=== PATIENT | female | born 2000 | race American Indian/Alaskan Native ===

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

== ENCOUNTER 2018-01-26 08:16 | Emergency (ER) | payer SELFPAY ==
[2018-01-26 08:23] VITALS: BP 134/86
[2018-01-26 08:43] LABS: Bacteria,Urine 2+ /HPF (Negative); Bilirubin,Urine NEG (Negative); Blood,Urine SM (Negative); Color,Urine Yellow (Yellow); Hyaline Casts,Urine 1 /LPF; Mucus,Urine 3+ /HPF; Protein,Urine <15 mg/dL mg/dL (Negative); Urobilinogen,Urine < 2.0 mg/dL (<2.0)
[2018-01-26 08:44] LABS: HCG Qualitative,Urine Negative (Negative)
[2018-01-26] MEDS ORDERED: MACROBID PO ONE (09:25)
--- NOTE | 2018-01-26 09:26 | Emergency Department Report ---
Blank Doc - Documentation Documentation: 17 year female presents to Hospital complaining of white vaginal discharge for 3 -4 days. Patient has had unprotected sex with a regular partner. She complains of intermittent lower abdominal pain and increased urinary frequency. No complains of dysuria or fever. On exam patient has very mild superpubic tenderness UA suggestive of infection with negative . Macrobid ordered Mid-level to perform pelvic exam and further evaluation
--- NOTE | 2018-01-26 09:55 | Emergency Department Report ---
ED Female HPI - General Chief complaint: Urogenital-Female Stated complaint: VAGINAL PAIN Time Seen by Provider: 01/26/18 09:21 Source: patient Mode of arrival: Ambulatory Limitations: No Limitations - History of Present Illness Initial comments: This is a 17-year-old -[place] female that presents with complaint of vaginal pain and discharge. Patient states symptoms started 3-4 days ago. Vaginal discharge is white and different from usual discharge. Last menstrual period 01/09/2018. Patient has had unprotected sex with a regular partner. She complains of intermittent lower abdominal pain and increased urinary frequency. She denies fever and dysuria. MD Complaint: vaginal discharge, pelvic pain Onset/Timin -: days(s) Location: suprapubic Radiation: non-radiating Severity: mild Severity scale (0 -10): 4 Quality: cramping Consistency: intermittent Improves with: none Worsens with: none Are you Now?: No Last Menstrual Period: 01/09/18 EDC: 10/16/18 Associated Symptoms: vaginal discharge, abdominal pain. denies: vaginal bleeding, nausea/vomiting, fever/chills, headaches, loss of appetite, dysuria, hematuria, rash, seizure, shortness of breath, syncope, weakness - Related Data Sexually active: Yes : 1 Para: 0 A: 1 Previous Rx's Medication Instructions Recorded Last Taken Type Fluconazole [Diflucan TAB] 200 mg PO QDAY #1 tablet 01/11/17 Unknown Rx Sulfamethoxazole/Trimethoprim 1 each PO BID #10 tablet 01/11/17 Unknown Rx [Bactrim DS TAB] metroNIDAZOLE 0.75% [Vandazole 1 applicator VG QHS #1 tube 01/11/17 Unknown Rx 0.75% VAGINAL] Fluconazole [Diflucan] 150 mg PO DAILY #1 tablet 01/26/18 Unknown Rx Sulfamethoxazole/Trimethoprim 1 each PO BID #6 tablet 01/26/18 Unknown Rx [Bactrim DS TAB] metroNIDAZOLE [Metronidazole] 500 mg PO BID #14 tablet 01/26/18 Unknown Rx Allergies Allergy/AdvReac Type Severity Reaction Status Date / Time No Known Allergies Allergy Verified 01/26/18 08:21 ED Review of Systems ROS: Stated complaint: VAGINAL PAIN Other details as noted in HPI Constitutional: denies: chills, fever Respiratory: denies: cough, shortness of breath, wheezing Cardiovascular: denies: chest pain, palpitations Gastrointestinal: abdominal pain (lower abdominal pain). denies: nausea, diarrhea Genitourinary: frequency. denies: urgency, dysuria, discharge Musculoskeletal: denies: back pain, joint swelling, arthralgia Neurological: denies: headache, weakness, paresthesias Psychiatric: denies: anxiety, depression ED Past Medical Hx - Past Medical History Previous Medical History?: No - Surgical History Past Surgical History?: No - Social History Smoking Status: Never Smoker Substance Use Type: None - Medications Home Medications: Home Medications Medication Instructions Recorded Confirmed Last Taken Type Fluconazole [Diflucan TAB] 200 mg PO QDAY #1 tablet 01/11/17 Unknown Rx Sulfamethoxazole/Trimethoprim 1 each PO BID #10 tablet 01/11/17 Unknown Rx [Bactrim DS TAB] metroNIDAZOLE 0.75% [Vandazole 1 applicator VG QHS #1 tube 01/11/17 Unknown Rx 0.75% VAGINAL] Fluconazole [Diflucan] 150 mg PO DAILY #1 tablet 01/26/18 Unknown Rx Sulfamethoxazole/Trimethoprim 1 each PO BID #6 tablet 01/26/18 Unknown Rx [Bactrim DS TAB] metroNIDAZOLE [Metronidazole] 500 mg PO BID #14 tablet 01/26/18 Unknown Rx ED Physical Exam - General Limitations: No Limitations General appearance: alert, in no apparent distress - Respiratory Respiratory exam: Present: normal lung sounds bilaterally. Absent: respiratory distress - Cardiovascular Cardiovascular Exam: Present: regular rate, normal rhythm. Absent: systolic murmur, diastolic murmur, rubs, gallop - GI/Abdominal GI/Abdominal exam: Present: soft, tenderness (suprapubic), normal bowel sounds. Absent: distended, guarding, rebound, rigid, organomegaly, mass - External exam: Present: normal external exam Speculum exam: Present: erythema, vaginal discharge (malodorous white discharge) , tissue. Absent: cervical discharge, vaginal bleeding, foreign body, laceration Bi-manual exam: Present: normal bi-manual exam - Back Exam Back exam: Present: normal inspection. Absent: CVA tenderness (R), CVA tenderness (L) - Neurological Exam Neurological exam: Present: alert, oriented X3 - Psychiatric Psychiatric exam: Present: normal affect, normal mood - Skin Skin exam: Present: warm, dry, intact, normal color. Absent: rash ED Course Vital Signs 01/26/18 08:21 Temperature 98.2 F Pulse Rate 83 Respiratory 16 Rate Blood Pressure 134/86 O2 Sat by Pulse 99 Oximetry ED Medical Decision Making - Lab Data Lab Results 01/26/18 Range/Units Unknown Urine Color Yellow (Yellow) Urine Turbidity Slightly-cloudy (Clear) Urine pH 5.0 (5.0-7.0) Ur Specific [place] 1.026 (1.003-1.030) Urine Protein <15 mg/dl (Negative) mg/dL Urine Glucose (UA) Neg (Negative) mg/dL Urine Ketones Neg (Negative) mg/dL Urine Blood Sm (Negative) Urine Nitrite Pos (Negative) Urine Bilirubin Neg (Negative) Urine Urobilinogen < 2.0 (<2.0) mg/dL Ur Leukocyte Esterase Tr (Negative) Urine WBC (Auto) 8.0 H (0.0-6.0) /HPF Urine RBC (Auto) 3.0 (0.0-6.0) /HPF U Epithel Cells (Auto) 6.0 (0-13.0) /HPF Urine Bacteria (Auto) 2+ (Negative) /HPF Hyaline Casts 1 /LPF Urine Mucus 3+ /HPF Urine HCG, Qual Negative (Negative) - Medical Decision Making This patient was examined by myself and Dr. Beltrán in fast track. Vitals are stable and in no acute distress. Labs were obtained. Gonorrhea and chlamydia pending, patient is to follow-up in 2 days for results. Wet prep and GC obtained via pelvic exam. Wet prep positive for yeast and clue cells, negative Trichomonas. Urinalysis positive nitrates and moderate. Start metronidazole, Diflucan, and Bactrim for bacterial vaginitis, vaginal candidiasis, and acute cystitis. Discharged home in stable condition. Discussed prevention options. F/U with PCP or Health Department. Critical care attestation.: If time is entered above; I have spent that time in minutes in the direct care of this critically ill patient, excluding procedure time. ED Disposition Clinical Impression: Bacterial vaginitis, Vaginal candidiasis Acute cystitis Qualifiers: Hematuria presence: with hematuria Qualified Code(s): N30.01 - Acute cystitis with hematuria Disposition: TO HOME OR SELFCARE Is pt being admited?: No Does the pt Need Aspirin: No Condition: Stable Instructions: Bacterial Vaginosis (ED), Vulvovaginal Candidiasis (ED), Urinary Tract Infection in Women (ED) Additional Instructions: Avoid drinking alcohol while taking antibiotics and for 24 hours after completion. Complete full course of antibiotics as prescribed. Take probiotic daily to tolerate antibiotic therapy. Continue safe sexual intercourse. Follow up with Primary Care Provider or health department. Prescriptions: Fluconazole [Diflucan] 150 mg PO DAILY #1 tablet metroNIDAZOLE [Metronidazole] 500 mg PO BID #14 tablet Sulfamethoxazole/Trimethoprim [Bactrim DS TAB] 1 each PO BID #6 tablet Referrals: [facility] [Outside] - 3-5 Days [facility] [Outside] - 3-5 Days [facility] [Outside] - 3-5 Days Forms: STI Treatment and Prevention Time of Disposition: 11:21 Print Language: KENYAN
== END 2018-01-26 11:42 | disposition home or self-care (01) ==
LOC: ED 08:16
DX: N76.0 Acute vaginitis (principal); B37.3 Candidiasis of vulva and vagina; N30.01 Acute cystitis with hematuria
CPT/HCPCS: 81001; 81025; 87210; 87591; 99284

== ENCOUNTER 2018-09-19 00:06 | Emergency (ER) | payer MEDICAID, OTHER ==
[2018-09-19 01:36] LABS: HCG Qualitative,Urine Negative (Negative)
[2018-09-19 01:57] LABS: Bilirubin,Urine Negative (Negative); Blood,Urine Negative (Negative); Color,Urine Yellow (Yellow)
[2018-09-19 01:58] LABS: Protein,Urine <15 mg/dL mg/dL (Negative)
--- NOTE | 2018-09-19 03:21 | Emergency Department Report ---
ED Dysuria HPI - HPI Chief Complaint: Urogenital-Female Stated Complaint: VAGINAL PAIN Time Seen by Provider: 09/19/18 02:25 Duration: 5 Days Severity: Mild Symptoms: Dysuria: No, Frequency: No, Suprapubic Pain: No, Flank Pain: No, Fever: No, Hematuria: No, Abdominal Pain: No, Previous UTI's: No Other History: 18 YO COMES TO ER WITH VAG DC CONSISTENT WITH HER BV. NOT C ONCERNED FOR STI. LMP 2 WEEKS AGO. NO ABD PAIN. NO DYSURIA. NO BACK PAIN. MALODOROUS DISCHARGE PER PT. ED Review of Systems ROS: Stated complaint: VAGINAL PAIN Other details as noted in HPI Comment: All other systems reviewed and negative ED Past Medical Hx - Past Medical History Previous Medical History?: No - Surgical History Past Surgical History?: No - Family History Family history: no significant - Social History Smoking Status: Never Smoker Substance Use Type: None - Medications Home Medications: Home Medications Medication Instructions Recorded Confirmed Last Taken Type Fluconazole [Diflucan] 150 mg PO DAILY #2 tablet 09/19/18 Unknown Rx metroNIDAZOLE [Flagyl] 500 mg PO Q12HR #20 tab 09/19/18 Unknown Rx Dysuria Exam - Exam General: Vital signs noted. No distress. Alert and acting appropriately. Exam: Yes Moist Mucous Membranes, No CVA Tenderness, No Abdominal Tenderness, No Rigidity or Guarding Labs: Lab Results 09/19/18 Range/Units 00:57 Urine Color Yellow (Yellow) Urine Turbidity Clear (Clear) Urine pH 6.0 (5.0-7.0) Ur Specific [place] 1.026 (1.003-1.030) Urine Protein <15 mg/dl (Negative) mg/dL Urine Glucose (UA) Negative (Negative) mg/dL Urine Ketones Negative (Negative) mg/dL Urine Blood Negative (Negative) Urine Nitrite Negative (Negative) Ur Reducing Substances Not Reportable Urine Bilirubin Negative (Negative) Urine Ictotest Not Reportable Urine Urobilinogen 2.0 (<2.0) mg/dL Ur Leukocyte Esterase Large (Negative) Urine WBC (Auto) 11.0 H (0.0-6.0) /HPF Urine RBC (Auto) 5.0 (0.0-6.0) /HPF U Epithel Cells (Auto) 1.0 (0-13.0) /HPF Urine HCG, Qual Negative (Negative) ED Course Vital Signs 09/19/18 00:31 Temperature 98.3 F Pulse Rate 82 Respiratory 18 Rate Blood Pressure 123/84 O2 Sat by Pulse 98 Oximetry ED Medical Decision Making - Medical Decision Making Vital Signs 09/19/18 00:31 Temperature 98.3 F Pulse Rate 82 Respiratory 18 Rate Blood Pressure 123/84 O2 Sat by Pulse 98 Oximetry Lab Results 09/19/18 Range/Units 00:57 Urine Color Yellow (Yellow) Urine Turbidity Clear (Clear) Urine pH 6.0 (5.0-7.0) Ur Specific [place] 1.026 (1.003-1.030) Urine Protein <15 mg/dl (Negative) mg/dL Urine Glucose (UA) Negative (Negative) mg/dL Urine Ketones Negative (Negative) mg/dL Urine Blood Negative (Negative) Urine Nitrite Negative (Negative) Ur Reducing Substances Not Reportable Urine Bilirubin Negative (Negative) Urine Ictotest Not Reportable Urine Urobilinogen 2.0 (<2.0) mg/dL Ur Leukocyte Esterase Large (Negative) Urine WBC (Auto) 11.0 H (0.0-6.0) /HPF Urine RBC (Auto) 5.0 (0.0-6.0) /HPF U Epithel Cells (Auto) 1.0 (0-13.0) /HPF Urine HCG, Qual Negative (Negative) pt not concerned for sti no abd tenderness no fever no cva tenderness preg neg urine noted pt states this is her usual BV symptoms she gets BV a couple times per year no lesions will dc home with flagyl and requested diflucan she will follow up with obgyn Critical care attestation.: If time is entered above; I have spent that time in minutes in the direct care of this critically ill patient, excluding procedure time. ED Disposition Clinical Impression: Vaginosis Disposition: DC-01 TO HOME OR SELFCARE Is pt being admited?: No Does the pt Need Aspirin: No Condition: Stable Instructions: Bacterial Vaginosis (ED) Prescriptions: Fluconazole [Diflucan] 150 mg PO DAILY #2 tablet metroNIDAZOLE [Flagyl] 500 mg PO Q12HR #20 tab Referrals: BRITTNEY STONE MD [Staff Physician] - 3-5 Days Time of Disposition: 03:19
[2018-09-20 18:05] VITALS: BP 123/84
== END 2018-09-19 03:30 | disposition home or self-care (01) ==
LOC: ED 00:06
DX: N76.0 Acute vaginitis (principal); B96.89 Other specified bacterial agents as the cause of diseases classified elsewhere
CPT/HCPCS: 81001; 81025; 99283